=== PATIENT | female | born 1950 ===

== ENCOUNTER 2023-10-17 10:30 | Emergency (ER) | payer OTHER ==
[~2023-10-17] VITALS: Ht 165.1 cm; Wt 72.3 kg
[2023-10-17 10:40] VITALS: TEMP 98.7
[2023-10-17 10:50] LABS: GLUCOMETER DEV NAME(LOC) ER.7; GLUCOSE,POINT OF CARE 93 MG/DL (70-110)
[2023-10-17] MEDS: ACETAMINOPHEN 500 MG TABLET PO ONE (13:12)
[2023-10-17] MEDS ORDERED: ACET-3385 PO (15:41)
[2023-10-17 15:51] VITALS: BP 139/82; PULSE 67; RESP 18
== END 2023-10-17 17:02 | disposition home or self-care (01) ==
LOC: EMS 10:30
DX: S80.01XA Contusion of right knee, initial encounter (principal); S09.90XA Unspecified injury of head, initial encounter; E78.00 Pure hypercholesterolemia, unspecified; E11.9 Type 2 diabetes mellitus without complications; I10 Essential (primary) hypertension; E78.5 Hyperlipidemia, unspecified; Z91.010 Allergy to peanuts; X58.XXXA Exposure to other specified factors, initial encounter; Y93.89 Activity, other specified; Y92.89 Other specified places as the place of occurrence of the external cause; Y99.8 Other external cause status
CPT/HCPCS: 70450; 70486; 72125; 82962; 99284